=== PATIENT | male | born 1960 | race Caucasian/White ===

== ENCOUNTER 2018-01-10 06:16 | Emergency (ER) | payer OTHER ==
[~2018-01-10] VITALS: Ht 182.9 cm; Wt 77.1 kg
[2018-01-10] MEDS ORDERED: IBUPROFEN 800800 M1 PO (07:01)
[2018-01-10] MEDS ORDERED: PREDNISONE50 MG PO (07:01)
[2018-01-10] MEDS ORDERED: NORCO 5-325 TA1 EACH PO (07:01)
[2018-01-10] MEDS ORDERED: FLEXERIL PO (07:01)
[2018-01-10 07:13] LABS: URINE BILIRUBIN NEGATIVE (Negative); URINE BLOOD 1+ (Negative); URINE CLARITY CLEAR; URINE COLOR STRAW; URINE GLUCOSE-RANDOM NEGATIVE (Negative); URINE KETONES NEGATIVE (Negative); URINE LEUKOCYTES-REFLEX NEGATIVE (Negative); URINE NITRITE-REFLEX NEGATIVE (Negative); URINE PROTEIN NEGATIVE (Negative); URINE SPECIFIC GRAVITY 1.015 (1.005-1.030); URINE UROBILINOGEN 0.2 E.U./dl (0.2-1.0)
[2018-01-10 07:25] LABS: BACTERIA-REFLEX None Seen /HPF (None Seen); CASTS None Seen /LPF (None Seen); CRYSTALS None Seen /LPF (None Seen); MUCUS None Seen strn/LPF (None Seen); SQUAMOUS 0-3 Few /LPF (0-3); URINE RBC 3-10 Few /HPF (0-2); URINE WBC-REFLEX None Seen /HPF (0-5)
[2018-01-10 07:54] VITALS: BP 161/99
[2018-03-19] MEDS ORDERED: NORCO 5-325 TA1 EACH PO (08:35)
[2018-03-19] MEDS ORDERED: IBUPROFEN 800800 M1 PO (08:35)
[2018-03-19] MEDS ORDERED: GABAPENTIN 100100 MG PO (16:14)
[2018-04-02] MEDS ORDERED: NORCO 5-325 TA1 EACH PO (08:22)
[2018-04-02] MEDS ORDERED: IBUPROFEN 800800 M1 PO (08:22)
== END 2018-01-10 07:58 | disposition home or self-care (01) ==
LOC: M.ERS 06:16
PROVIDERS: Personal Emergency Response Attendant
DX: M54.31 Sciatica, right side (principal); F17.210 Nicotine dependence, cigarettes, uncomplicated

== ENCOUNTER → 2018-02-18 | Outpatient (CLI) | payer OTHER ==
[~2018-02-18] MED LIST: ASPIRIN EC81 M1 PO; ATORVASTATIN CA40 MG PO; BRILINTA90 MG PO; CARVEDILOL3.125 MG PO; FLEXERIL PO; GABAPENTIN 100100 MG PO; IBUPROFEN 800800 M1 PO; LISINOPRIL5 MG PO; NORCO 5-325 TA1 EACH PO; PREDNISONE50 MG PO
== END ==
LOC: M.RAD 08:35
DX: M51.36 Other intervertebral disc degeneration, lumbar region (principal); M16.11 Unilateral primary osteoarthritis, right hip; M48.061 Spinal stenosis, lumbar region without neurogenic claudication; I10 Essential (primary) hypertension; Z87.891 Personal history of nicotine dependence

== ENCOUNTER → 2018-03-19 | Outpatient (CLI) | payer OTHER ==
--- NOTE | 2018-04-22 10:00 | PAINCON ---
[address] [address] PAIN MANAGEMENT CONSULTATION Name: MILA SHETTY Room: ZITA BaezAzul#: [id number] Admission: 03/19/18 Attend Phys: Tiffanie Cerna MD Discharge: Date of : 62 Report #: [id number] THIS REPORT FOR: //name// CC: Brigido Cerna DATE OF SERVICE: 03/25/2018 CHIEF COMPLAINT: Low back and right leg pain. HISTORY OF PRESENT ILLNESS: The patient is a 57-year-old gentleman who has been referred to the pain clinic. The patient states he injured his back. He is experiencing pain in the lower portion of his back from his waist lying down his hip into his leg involving his foot. Pain is made worse when he is standing. It is problematic after walking for a short period of time. Notes the pain is improved with use of hot bath for about 10 minutes. Described as constant, shooting and pounding. States that he was carrying a tool chest on 01/09/2018. He slipped and strained his back. Since that time, he has been experiencing constant pain radiating down into his low back involving the right hip and down into the right leg. He has been using gabapentin as well as Naprosyn. Notes that activities such as walking, standing, bending, going from a sitting to a standing position as well as climbing stairs are problematic. He avoids lifting and bending at this juncture. ALLERGIES: No known drug allergies. PAST MEDICAL HISTORY: Back injury, hypertension. PAST SURGICAL HISTORY: None. 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 REVIEW OF SYSTEMS: Indicates generally good health, wears glasses, frequent urination, back pain, difficulty walking, depression. LABORATORY DATA: MRI of the lumbar spine dated 02/26/2018: 1. L2-L3: Posterior disk height loss, moderate left eccentric disk bulge, mild ligamentum flavum buckling and facet osteophytes. Moderate left greater than right neural foraminal stenosis. Mild narrowing of the lateral recesses. Moderate spinal canal stenosis, dural sac diameter 10 mm relative to the normal diameter of 14 at the L2 pedicle level. L3-L4 posterior disk height loss, mild disk bulge with superimposed left lateral large broad-based disk protrusion. Facet osteophytes. Severe left neural foraminal stenosis with effacement of perineural fat and probable impingement of the left L3 nerve from the protrusion. Moderate right neural foraminal stenosis[place] [address] PAIN MANAGEMENT CONSULTATION Name: MILA SHETTY Room: [facility] GordonKayy#: [id number] Admission: 03/19/18 Attend Phys: Tiffanie Cerna MD Discharge: Date of : 62 Report #: [id number]. Dural sac diameter is 12 mm relative to the normal diameter of 13 at the L3 level. 2. L4-L5: Moderate disk bulge, right lateral broad-based disk protrusion, ligamentum flavum buckling and facet osteophytes. Severe right neural foraminal stenosis with complete obliteration of the perineural fat and impingement of the right L4 nerve. Moderate severe left neural foraminal stenosis. Moderate lateral recess stenosis by disk bulge, which partially effaces the dural sac about the descending right L5 nerve roots. Zdxurdai-[id number]-[id number] spinal canal stenosis. Dural sac diameter is 7 mm relative to the normal diameter of 13 at the L4 pedicle. 3. L5-S1: Disk height loss, moderate disk bulge, lateral endplate osteophytes and facet osteophytes. Mild/moderate neural foraminal stenosis. No spinal canal stenosis. Dural sac diameter 12 mm, similar to the diameter at the L5 pedicle level. PAIN CLINIC ASSESSMENT: 1. The patient is not being treated for osteoarthritis or rheumatoid arthritis. 2. Height 6 feet 1 inch, weight 180 pounds, BMI is 24. 3. Vital signs: Blood pressure 172/106, heart rate 100, respiratory rate 16, room air saturation 95, temperature 99.3. Pain score 3/10. 4. Fall history: The patient did slip while carrying a tool chest on 01/09/2018. 5. Blood thinner. The patient is not on a blood thinning medication. 6. Hypertension. The patient is not being treated for hypertension. 7. Opioids greater than 6 weeks: The patient has not been received medication greater than 6 weeks. 8. Risk assessment tool. 9. Functional assessment tool. 10. Recreational drug use. The patient denies use of recreational drugs. 11. Tobacco: The patient smoked 1 pack of cigarettes per day for about the last 45 years. 12. Alcohol: The patient occasionally drinks alcoholic beverages on the weekend. PHYSICAL EXAMINATION: GENERAL: The patient is a well-developed, well-nourished white male. Appears his stated age. He is alert and oriented x 3. His affect is appropriate. HEENT: Normocephalic, atraumatic. Extraocular eye muscles intact. Sclerae nonicteric. Mucous membranes are moist. NECK: Without adenopathy or JVD. HEART: Regular rate. ABDOMEN: Nontender. LUNGS: Clear to auscultation without rhonchi. MUSCULOSKELETAL: Upper extremity muscle strength is judged to be 5/5. The patient without significant scoliosis, kyphosis or lordosis. He has pain and discomfort in the lower portion of his back with [place] [address] PAIN MANAGEMENT CONSULTATION Name: MILA SHETTY Room: [facility] SashaRosa.#: [id number] Admission: 03/19/18 Attend Phys: Tiffanie Cerna MD Discharge: Date of : 62 Report #: [id number] posterior L5-S1 distribution on the right. He has 5- muscle strength. Positive straight leg raise. IMPRESSION: Right lumbar radiculopathy in the L5-S1 distribution after a fall and stress on his back. RECOMMENDATIONS: We discussed treatment options with the patient. Risks and benefits of an epidural steroid injection were discussed. Possible complications of the procedure were reviewed. At this juncture, we would recommend that the patient consider an epidural steroid injection. He will follow up in the future. At that time, we would then consider an epidural steroid injection. Possible complications of the procedure were discussed with the patient. At this juncture, he feels that the pain is problematic enough that he would like to consider it. We will petition his insurance company. The patient did try Medrol Dosepak and has been using Neurontin, but continues to have pain in spite of that treatment course. We would like to thank you for letting us participate in his care. He will follow up in the future, at which time we will consider an epidural steroid injection. <ELECTRONICALLY SIGNED> By: Tiffanie Cerna MD 04/22/18 1000 2237 0340N. Caleb Cerna MD /nt
== END ==
LOC: M.PC 04:49
DX: M54.16 Radiculopathy, lumbar region (principal)

== ENCOUNTER 2018-04-02 10:50 | Inpatient (IN) | payer OTHER ==
[~2018-04-02] VITALS: Ht 185.4 cm; Wt 82.1 kg
[2018-04-02] VITALS (10 sets, daily range): BP systolic 109–157; BP diastolic 70–103
[~2018-04-02 10:50] MED LIST changes: -ASPIRIN EC81 M1 PO; -ATORVASTATIN CA40 MG PO; -BRILINTA90 MG PO; -CARVEDILOL3.125 MG PO; -LISINOPRIL5 MG PO
[2018-04-02 11:11] LABS: ABSOLUTE BASOPHILS 0.1 thou/uL (0.0-0.2); ABSOLUTE EOSINOPHILS 0.1 thou/uL (0.0-0.7); ABSOLUTE LYMPHOCYTES 3.7 thou/uL (0.8-5.3); ABSOLUTE MONOCYTES 0.9 thou/uL (0.0-1.2); ABSOLUTE NEUTROPHILS 5.1 thou/uL (1.6-8.1); BASOPHILS 0.9 %; EOSINOPHILS 1.2 %; HEMATOCRIT 45.3 % (42.0-52.0); HEMOGLOBIN 15.7 gm/dL (14.0-18.0); LYMPHOCYTES 37.6 %; MCHC 34.6 g/dL (28.0-37.0); MCV 95.3 fL (80.0-100.0); MONOCYTES 9.1 %; MPV 7.2 fl. (7.2-11.1); NUCLEATED RBCS 0 /100WBC; PLATELET COUNT* 296 thou/uL (150-400); POLYS 51.2 %; RBC 4.75 mil/uL (4.50-6.00); RDW-CV 13.3 % (10.5-14.5); WBC 9.9 thou/uL (4.0-11.0)
[2018-04-02 11:25] LABS: APTT 28.8 Seconds (25.0-31.3)
[2018-04-02 11:30] LABS: CALCIUM 8.4 mg/dL (8.5-10.1); CREATININE 0.8 mg/dL (0.6-1.3); POTASSIUM 4.1 mmol/L (3.5-5.1)
[2018-04-02 11:48] LABS: ALBUMIN 3.4 g/dL (3.4-5.0); CK-MB MASS 2.3 ng/mL (<0.5-3.6); MAGNESIUM 1.9 mg/dL (1.8-2.4); TOTAL BILIRUBIN 0.4 mg/dL (<0.1-1.0); TOTAL PROTEIN 7.4 g/dL (6.4-8.2); TROPONIN-I LEVEL 0.18 ng/mL (<0.06)
--- NOTE | 2018-04-02 17:30 | EKG ---
[place] [address] ELECTROCARDIOGRAM REPORT Name: [place] Room: [address] ADM IN .R.#: [id number] Admission: 04/02/18 Attend Phys: Yrn Bourgeois MD Discharge: Date of : 62 Report #: [id number] THIS REPORT FOR: //name// [facility] ED Test Date: 2018-04-02 Test Time: 10:56:25 Pat Name: MILA SHETTY Department: Room: [facility] Gender: M Editorial Assistant: : 1960 Requested By: Kyle Bryant Order Number: [id number] MD: Lei Cortez Measurements Intervals [place] Rate: 98 P: 52 [place]: 157 QRS: 79 QRSD: 103 T: 2 QT: 354 QTc: 453 Interpretive Statements Sinus rhythm Extensive anterior infarct, possibly acute No previous ECG available for comparison Electronically Signed On 04-02-2018 17:29:49 CDT by Lei Cortez [email or web address] <ELECTRONICALLY SIGNED> By: Lei Cortez MD, [facility] 04/02/18 1729 D: 09/1055 55 Lei Cortez MD, FACC /EPI
--- NOTE | 2018-04-02 17:32 | EKG ---
[place] [address] ELECTROCARDIOGRAM REPORT Name: DIOGENESMILA ARIAS Room: [address] ADM IN M.R.#: [id number] Admission: 04/02/18 Attend Phys: Yrn Bourgeois MD Discharge: Date of : 62 Report #: [id number] THIS REPORT FOR: //name// [facility] Test Date: 2018-04-02 Test Time: 14:23:50 Pat Name: MILA SHETTY Department: Room: [address] Gender: M Traffic Safety Administrator: : 1960 Requested By: Lei Cortez Order Number: [id number] Rubi MD: Lei Cortez Measurements Intervals [place] Rate: 88 P: 63 [place]: 161 QRS: 90 QRSD: 121 T: 53 QT: 379 QTc: 459 Interpretive Statements Sinus rhythm Nonspecific intraventricular conduction delay septal infarct, old Electronically Signed On 04-02-2018 17:32:22 CDT by Lei Cortez [email or web address] <ELECTRONICALLY SIGNED> By: Lei Cortez MD, [facility] 04/02/18 1732 1423 1423 Lei Cortez MD, FACC /EPI
[2018-04-03] VITALS (16 sets, daily range): BP systolic 101–130; BP diastolic 60–87
[2018-04-03 02:24] LABS: HEMATOCRIT 41.7 % (42.0-52.0); HEMOGLOBIN 14.3 gm/dL (14.0-18.0); MCH 32.6 pg (26.0-34.0); MCHC 34.3 g/dL (28.0-37.0); MCV 94.9 fL (80.0-100.0); MPV 7.6 fl. (7.2-11.1); RBC 4.39 mil/uL (4.50-6.00); RDW-CV 13.5 % (10.5-14.5); WBC 9.6 thou/uL (4.0-11.0)
[2018-04-03 02:44] LABS: ANION GAP 6 mmol/L (7-16); BUN 12 mg/dL (7-18); CALCIUM 7.7 mg/dL (8.5-10.1); CHLORIDE 101 mmol/L (98-107); CHOLESTEROL 171 mg/dL (<200); CO2 24 mmol/L (21-32); CREATININE 0.7 mg/dL (0.6-1.3); GLUCOSE 98 mg/dL (70-99); HDL CHOLESTEROL 30 mg/dL (>40); LDL CHOLESTEROL 122 mg/dL (<100); MAGNESIUM 2.1 mg/dL (1.8-2.4); POTASSIUM 3.9 mmol/L (3.5-5.1); SODIUM 131 mmol/L (136-145); TC:HDL 5.7 Ratio (Not establshd); TRIGLYCERIDE 97 mg/dL (<150); VLDL 19 mg/dL (<40)
[2018-04-03 02:45] LABS: SERUM ASSESSMENT Clear; TROPONIN-I LEVEL 10.63 ng/mL (<0.06)
[2018-04-03] MEDS ORDERED: LISINOPRIL5 MG PO (07:20)
[2018-04-03] MEDS ORDERED: BRILINTA90 MG PO (07:20)
[2018-04-03] MEDS ORDERED: ATORVASTATIN CA40 MG PO (07:20)
[2018-04-03] MEDS ORDERED: ASPIRIN EC81 M1 PO (07:20)
[2018-04-03] MEDS ORDERED: CARVEDILOL3.125 MG PO (07:20)
--- NOTE | 2018-04-03 08:48 | CON ---
[address] [address] CONSULTATION Name: MILA SHETTY BAKARIGILBERTO Room: [address] IN M.R.#: [id number] Admission: 04/02/18 Attend Phys: Yrn Bourgeois MD Discharge: Date of : 62 Report #: [id number] THIS REPORT FOR: //name// CC: Lei Ga MD INDICATION: Anterior wall ST elevation myocardial infarction. HISTORY OF PRESENT ILLNESS: The patient is a 57-year-old gentleman who was being seen in the pain clinic when he complained of recurrent chest pain. He had midsternal chest discomfort, associated with diaphoresis. The pain radiated to both arms bilaterally. EKG shows ST elevation in the anterior leads, consistent with acute anterior wall ST elevation myocardial infarction. The patient did have an episode of ventricular fibrillation in the Emergency Room, requiring a single biphasic shock, back to normal sinus rhythm. The patient has been placed on amiodarone drip. The patient has no prior cardiac history. Risk factors include hypertension and tobacco use. PAST MEDICAL HISTORY: 1. Hypertension. 2. Tobacco use. 3. Chronic low back pain. PAST SURGICAL HISTORY: None. 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 He smokes a pack of cigarettes daily. Denies alcohol use. HOME MEDICATIONS: Hydrocodone/acetaminophen p.r.n., ibuprofen p.r.n., prednisone 5 mg daily. Gabapentin 100 mg at bedtime. ALLERGIES: None documented. FAMILY HISTORY: Noncontributory. PHYSICAL EXAMINATION: VITAL SIGNS: Blood pressure 118/62, pulse 72 and regular. GENERAL: This is a gentleman who is in no distress. HEENT: Head is normocephalic, atraumatic. Extraocular muscles intact. Mucous membranes moist. NECK: Shows no jugular venous distention or bruit. CHEST: Clear anteriorly. CARDIAC: Regular rhythm without gallop or murmur. ABDOMEN: Soft, nontender. EXTREMITIES: Without clubbing, cyanosis or edema. The [place] [address] CONSULTATION Name: MILA SHETTY Room: [address] IN [facility]#: [id number] Admission: 04/02/18 Attend Phys: Yrn Bourgeois MD Discharge: Date of : 62 Report #: [id number] LABORATORY DATA: Pending. IMPRESSION AND RECOMMENDATIONS: 1. Acute anterior wall ST elevation myocardial infarction. Plan for coronary intervention and catheterization. 2. Hypertension. We will adjust medications while in hospital. 3. Probable hyperlipidemia. Recommend atorvastatin nightly. 4. Chronic tobacco use, smoking cessation advised. <ELECTRONICALLY SIGNED> By: Ross De Leon MD, [facility] 04/03/18 0848 1110 1138[facility] Hospitalnai De Leon MD, FACC /nt
--- NOTE | 2018-04-03 10:08 | EKG ---
[place] [address] ELECTROCARDIOGRAM REPORT Name: DIOGENESMILA ARIAS Room: [address] ADM IN M.R.#: [id number] Admission: 04/02/18 Attend Phys: Yrn Bourgeois MD Discharge: Date of : 62 Report #: [id number] THIS REPORT FOR: //name// [facility] Test Date: 2018-04-03 Test Time: 08:17:53 Pat Name: MILA SHETTY Department: Room: [address] Gender: M Yield Loss Inspector: : 1960 Requested By: Lei Cortez Order Number: [id number] Rubi MD: Lei Cortez Measurements Intervals [place] Rate: 79 P: 56 [place]: 162 QRS: 83 QRSD: 116 T: 128 QT: 510 QTc: 585 Interpretive Statements Sinus rhythm Nonspecific intraventricular conduction delay Abnrm T, probable ischemia, anterolateral lds Compared to ECG 04/02/2018 14:23:50 Possible ischemia now present Electronically Signed On 04-03-2018 10:08:22 CDT by Lei Cortez [email or web address] <ELECTRONICALLY SIGNED> By: Lei Cortez MD, [facility] 04/03/18 1008 6 08 Lei Coretz MD, [facility] /EPI
--- NOTE | 2018-04-03 12:59 | 2DMMODE ---
[place] [address] 2 D/M-MODE ECHOCARDIOGRAM Name: MILA SHETTY EMPIRE Room: [address] IN .R.#: [id number] Admission: 04/02/18 Attend Phys: Yrn Bourgeois, Discharge: Date of : 62 Date of Service: 04/03/18 1259 Report #: [id number] THIS REPORT FOR: //name// APPROVED REPORT Study performed: 04/03/2018 09:50:20 EXAM: Comprehensive 2D, Doppler, and color-flow Echocardiogram Patient Location: Bedside BSA: 2.04 HR: 74 bpm BP: 120/71 mmHg Other Information Study Quality: Excellent Indications Non STEMI 2D Dimensions IVSd: 12.88 (7-11mm) LVOT Diam: 18.69 (18-24mm) LVDd: 43.39 mm PWd: 13.65 (7-11mm) Ascending Ao: 32.84 (22-36mm) LVDs: 34.20 (25-40mm) Aortic Root: 34.23 mm Volumes Left Atrial Volume (Systole) LA ESV Index: 11.30 mL/m2 Aortic Valve AoV Peak Parth.: 1.92 m/s AO Peak Gr.: 14.69 mmHg LVOT Max P.38 mmHg AO Mean Gr.: 8.42 mmHg LVOT Mean P.09 mmHg LVOT Max V: 1.45 m/s AO V2 VTI: 28.09 cm LVOT Mean V: 0.93 m/s LATRICE (VTI): 2.51 cm2 LVOT V1 VTI: 25.73 cm AI [place]: 2.30 m/s2 AI PHT: 566.14 ms Mitral Valve E/A Ratio: 0.62 MV Decel. Time: 219.63 ms MV E Max Parth.: 0.38 m/[place] [address] 2 D/M-MODE ECHOCARDIOGRAM Name: MILA SHETTY EMPIRE Room: [address] IN .R.#: [id number] Admission: 04/02/18 Attend Phys: Yrn Bourgeois, Discharge: Date of : 62 Date of Service: 04/03/18 1259 Report #: [id number] MV PHT: 63.69 ms MVA (PHT): 3.45 cm2 TDI E/Lateral E': 3.17 E/Medial E': 5.43 Medial E' Parth.: 0.07 m/s Lateral E' Parth.: 0.12 m/s Pulmonary Valve PV Peak Parth.: 0.96 m/s PV Peak Gr.: 3.66 mmHg Left Ventricle The left ventricle is normal size. mild hypokinesis noted of the distal anteroseptal wall and apex Mild concentric left ventricular hypertrophy. Left ventricular systolic function is borderline. LVEF is 45-50%. Grade I - abnormal relaxation pattern. Right Ventricle The right ventricle is normal size. The right ventricular systolic function is normal. Atria The left atrium size is normal. The right atrium size is normal. Aortic Valve The Aortic valve is sclerotic. Mild aortic regurgitation. No hemodynamically significant valvular aortic stenosis. Mitral Valve The mitral valve is normal in structure. There is no mitral valve regurgitation noted. No evidence of mitral valve stenosis. Tricuspid Valve The tricuspid valve is normal in structure. Trace tricuspid regurgitation. Pulmonic Valve The pulmonary valve is normal in structure. There is no pulmonic valvular regurgitation. Great Vessels The aortic root is normal in size. IVC is normal in size and collapses >50% with inspiration[place] [address] 2 D/M-MODE ECHOCARDIOGRAM Name: DIOGENESZARAGOZA JUANA Room: [address] IN [facility]#: [id number] Admission: 04/02/18 Attend Phys: Yrn Bourgeois, Discharge: Date of : 62 Date of Service: 04/03/18 1259 Report #: [id number] There is no pericardial effusion. <Conclusion> LVEF is 45-50%. mild hypokinesis noted of the distal anteroseptal wall and apex Mild aortic regurgitation. Mild concentric left ventricular hypertrophy. <ELECTRONICALLY SIGNED> By: Lei Cortez MD, FACC 04/03/18 1259 1259 1259 Lei Cortez MD, FACC /INF
--- NOTE | 2018-04-03 18:49 | CARD ---
[address] [address] CARDIAC CATH REPORT Name: [place] Room: [address] IN ..#: [id number] Admission: 04/02/18 Attend Phys: Yrn Bourgeois MD Discharge: Date of : 62 Report #: [id number] THIS REPORT FOR: //name// APPROVED REPORT Study performed: 04/02/2018 10:56:41 Patient Details Patient Status: ED Room #: The patient is a 57 year-old male Event Personnel Ross De Leon Product Safety Compliance Leader, Silvia Rodriguez RN Log Carrier Operator, Amira Feng RTR Monitor, Garland Lane (R) Dana Amador David Product Safety Compliance Leader Procedures Performed Art Access - R femoral artery* Left Heart Cath w/or w/o Coronaries [id number] [facility] Place w/wo Plasty Single LAD [id number] Hemostasis w/ Angioseal Indication Abnormal ECG, STEMI , Chest pain Risk Factors Tobacco History () Admission/Lab Medications/Medications given during procedure Aspirin, Glycoprotein IllbIlla Inhibitors, Heparin Unfract., Heparin IV 6000 units Procedure Narrative The patient was brought emergently to the Cardiac Catheterization Laboratory and was prepped and draped in a sterile manner. The right femoral was infiltrated with 2% Lidocaine subcutaneous anesthesia. A 6fr Ultimum Sheath sheath was inserted into the right femoral artery. Coronary angiography was performed using coronary diagnostic catheters. The right coronary system was accessed and visualized with a Diagnostic 6Fr JR4 catheter. The left coronary system was accessed and visualized with a Diagnostic 6Fr JL4 catheter. The left ventricle was accessed and visualized with a Diagnostic 6Fr angled pigtail catheter. Left ventricular/Aortic Valve gradient assessed via catheter pullback. Left ventriculogram was performed in BARRON projection. Closure device was deployed with a 6 Fr Angioseal. The patient tolerated the procedure well [place] [address] CARDIAC CATH REPORT Name: MILA SHETTY MOBILE Room: [address]#: [id number] Admission: 04/02/18 Attend Phys: Yrn Bourgeois MD Discharge: Date of : 62 Report #: [id number] associated with the procedure. There was no hematoma. Intraoperative Conscious Sedation There was no sedation given. Fluoro Time: 5.6 minutes Dose: DAP 09128 cGycm2 1542 mGy Contrast Type and Amount: Omnipaque 30 ml Coronary Angiography The patient's coronary anatomy is right dominant. Diagnostic Cath Left Main Normal LAD Normal proximally and totally occluded in the midportion. Distal LAD not visualized. Diagonal 1 60% plaque proximally. Circumflex Small in caliber and normal. OM1 Large branched and normal. Right Coronary The vessel appears normal proximally with a tubular 50% narrowing in the mid to distal portion. R PDA Normal. RPLV Normal. Left Ventriculography The left ventricular ejection fraction is estimated to be 30-35%. Left ventricular wall motion abnormalities are present. There is no mitral insufficiency. akinesis noted of the mid and distal anterior wall and apex Hemodynamics The aortic pressure is 158/90 mmHg with a mean of 116 mmHg. The left ventricular pressure is 170/25 mmHg with a mean of mmHg. The left ventricular end diastolic pressure is 27 mmHg. There was no gradient across the aortic valve upon pullback. Pullback from the left ventricle to the aorta revealed no gradient across the aortic valve. PCI Technique Lesion Anticoagulation was achieved with Heparin. bolus of IV aggrastat given Percutaneous coronary intervention was performed on the mid left anterior descending artery segment. The lesion stenosis prior to intervention was 100% with AURA 0 flow. A 6F XB LAD 3.5 Guide Catheter was used to engage the lm ostium. A BMW 190cm Interventional Guidewire was [place] [address] CARDIAC CATH REPORT Name: MILA SHETTY MOBILE Room: [address] IN [facility]#: [id number] Admission: 04/02/18 Attend Phys: Yrn Bourgeois MD Discharge: Date of : 62 Report #: [id number] BALLOON DILATION A Balloon catheter Trek RX 2.5 X 8 was inserted and inflated up to 16.00atm for 12seconds. Repeat angiography revealed the following post-dilatation results: 99% stenosis. Additional Inflation: 16:00atm for 7seconds. patient had a short run of ventricular tachycardia following balloon inflation and the patient was given 150 mg of IV amiodarone STENT DEPLOYMENT A drug-eluting stent Xience Alpine RX 3.5X23 was inserted and inflated up to 10.00atm for 15seconds. Repeat angiography revealed the following post-stent deployment results: 0% stenosis. Additional Inflation: 12.00atm for 16seconds. Final angiography reveals 0 % stenosis with AURA 3 flow. Conclusion 1. acute occlusion of the mid lad 2. successful placement of a single drug eluting stent in the mid lad 3. moderate LV dysfunction with an EF of 30-35% Recommendations Cardiac Rehabilitation Referral Aggressive Medical Therapy Medications Administered Ticagrelor Diagnostic Cath Approved by: Ross De Leon MD Date/Time: <ELECTRONICALLY SIGNED> By: Lei Cortez MD, [facility] 04/03/181848 48 48Dabreanna Cortez MD, FAC /INF
[2018-04-04 02:07] LABS: GLYCOHEMOGLOBIN (HGB A1C) 5.5 % (4.8-5.6)
[2018-04-04 04:00] VITALS: BP 118/75
[2018-04-04 10:30] VITALS: BP 113/68
[2018-04-04 12:01] VITALS: BP 126/77
== END 2018-04-04 14:45 | disposition home or self-care (01) | DRG 246 ==
LOC: M.CL 10:50 → M.ERS 10:50 → M.TBA-CV 11:08 → M.ICU 11:08 → M.2W 04-03 16:22
PROVIDERS: Family Medicine; Internal Medicine Cardiovascular Disease; ADMIT Internal Medicine
PROC: 027034Z Dilation of Coronary Artery, One Artery with Drug-eluting Intraluminal Device, Percutaneous Approach (ICD-10-PCS; principal; 2018-04-02)
PROC: 4A023N7 Measurement of Cardiac Sampling and Pressure, Left Heart, Percutaneous Approach (ICD-10-PCS; principal; 2018-04-02)
PROC: B2111ZZ Fluoroscopy of Multiple Coronary Arteries using Low Osmolar Contrast (ICD-10-PCS; principal; 2018-04-02)
PROC: B2151ZZ Fluoroscopy of Left Heart using Low Osmolar Contrast (ICD-10-PCS; principal; 2018-04-02)
DX: I21.09 ST elevation (STEMI) myocardial infarction involving other coronary artery of anterior wall (principal); I49.01 Ventricular fibrillation; I50.41 Acute combined systolic (congestive) and diastolic (congestive) heart failure; F11.20 Opioid dependence, uncomplicated; G89.29 Other chronic pain; I11.0 Hypertensive heart disease with heart failure; M54.5 Low back pain; F17.210 Nicotine dependence, cigarettes, uncomplicated; I25.10 Atherosclerotic heart disease of native coronary artery without angina pectoris; Z79.82 Long term (current) use of aspirin; Z79.899 Other long term (current) drug therapy; Z87.828 Personal history of other (healed) physical injury and trauma; Z23 Encounter for immunization

== ENCOUNTER → 2018-04-02 | Outpatient (CLI) | payer OTHER ==
--- NOTE | 2018-04-22 10:00 | PAINCON ---
[address] [address] PAIN MANAGEMENT CONSULTATION Name: MILA SHETTY Room: ZITA HoldenKayy#: [id number] Admission: 04/02/18 Attend Phys: Tiffanie Cerna MD Discharge: Date of : 62 Report #: [id number] THIS REPORT FOR: //name// CC: Brigido Cerna DATE OF SERVICE: 04/03/2018 PRIMARY CARE PHYSICIAN: Brigido Ga MD CHIEF COMPLAINT: Chest pain. HISTORY OF PRESENT ILLNESS: The patient is a 57-year-old gentleman who has been seen in the Pain Clinic because of low back pain with radiation down into his right hip. He has returned to the Pain Clinic with the expectation of undergoing an epidural steroid injection. The patient complained this morning of some substernal chest pain. Noticed pain 2 days prior. He did have some pain, which lasted about 10 minutes. It involves his left arm. He returns today indicating that he has noted some pain and discomfort at this juncture. Pain in the low back area was rated as a 2/10. At this juncture, he has noticed an increasing amount of pain. He is feeling somewhat lightheaded. He is diaphoretic. He has not been treated for cardiac pain in the past. ALLERGIES: No known drug allergies. PAIN CLINIC ASSESSMENT: 1. The patient has not been treated for osteoarthritis or rheumatoid arthritis. 2. Height 6 feet 1 inch, weight 178 pounds, BMI is 23.9. 3. Vital signs: Blood pressure 123/84, heart rate 96, respiratory rate 16, room air saturation 95%, temperature 98.7. 4. Pain intensity in the low back area 2/10, chest pain intensity 7/10. He is experiencing some pain is radiating down into his left arm. 5. Fall history: The patient has not fallen in the last week. Did slip and fall on 01/09/2018 while carrying a tool chest. 6. Blood thinner. The patient is not on a blood thinning medication. 7. Hypertension. The patient is not being treated for hypertension. 8. Opioids greater than a week, then 6 weeks. The patient is not receiving opioid medication on a regular basis. 9. Risk assessment tool, low for use of opioid medication. 10. Functional assessment tool. 11. Recreational drug use. The patient denies use of recreational drugs. 12. Tobacco: The patient smokes 1 pack of cigarettes per day and smoked for about the last 45 years. 13. Alcohol: The patient denies more than occasional alcoholic beverage [place] [address] PAIN MANAGEMENT CONSULTATION Name: DIOGENESMILA [facility] [id number] Admission: 04/02/18 Attend Phys: Tiffanie Cerna MD Discharge: Date of : 62 Report #: [id number] PHYSICAL EXAMINATION: GENERAL: The patient is a well-developed, well-nourished white male. Appears his stated age. He is somewhat ____ today. He does have somewhat of a look of impending doom on his face. He is diaphoretic. He is complaining of pain and discomfort in the left arm with radiation in the left arm and pain in this area of his heart. HEENT: Normocephalic, atraumatic. Extraocular eye muscles intact. Sclerae nonicteric. Mucous membranes are moist. NECK: Without adenopathy or JVD. HEART: The patient does complain of chest pain and discomfort. ABDOMEN: Nontender. MUSCULOSKELETAL: Upper extremities muscle strength 5/5. NEUROLOGIC: The patient without scoliosis, kyphosis or lordosis. Has pain and discomfort in the lower portion of his back with pain that radiates down into the L5-S1 distribution. IMPRESSION: New onset of chest pain first one ____ about 10 minutes with left arm pain and discomfort on Sunday. Today is Sunday. He has noted an increase in pain and discomfort at this juncture. He is feeling short of breath and experiencing more pain and discomfort. DESCRIPTION OF PROCEDURE: The patient was taken to the examination room. He was placed on the bed. A blood pressure monitor was placed. Saturation monitor was placed. The patient was placed on oxygen 100% nonrebreather was placed. Started to note some improvement in his pain. central sterile technician were called. The patient was evaluated. He was then transported to the Emergency Room at [facility]. He will then be treated by the emergency team and cardiac staff. We would like to thank you for letting us participate in his care. We hope he continues to improve. <ELECTRONICALLY SIGNED> By: Tiffanie Cerna MD 04/22/18 1000 [id number] [id number]. Caleb Cerna MD /JAZIEL
== END ==
LOC: M.PC 04:54
DX: I21.3 ST elevation (STEMI) myocardial infarction of unspecified site (principal); F17.210 Nicotine dependence, cigarettes, uncomplicated; Z72.89 Other problems related to lifestyle

== ENCOUNTER → 2019-01-06 | Outpatient (CLI) | payer OTHER ==
[~2019-01-06] MED LIST changes: +ASPIRIN EC81 M1 PO; +ATORVASTATIN CA40 MG PO; +BRILINTA90 MG PO; +CARVEDILOL3.125 MG PO; +LISINOPRIL5 MG PO
--- NOTE | 2019-01-06 15:35 | 2DMMODE ---
[place] [address] 2 D/M-MODE ECHOCARDIOGRAM Name: MILA SHETTY BAKARIGILBERTO Room: [facility]#: [id number] Admission: 01/06/19 Attend Phys: Ross De Leon, Discharge: Date of : 62 Date of Service: 01/06/19 1534 Report #: [id number] THIS REPORT FOR: //name// APPROVED REPORT Study performed: 01/06/2019 09:01:14 EXAM: Comprehensive 2D, Doppler, and color-flow Echocardiogram Patient Location: Out-Patient BSA: 2.01 HR: 74 bpm BP: 120/70 mmHg Other Information Study Quality: Good Indications Congestive Heart Failure CAD 2D Dimensions IVSd: 9.91 (7-11mm) LVOT Diam: 20.94 (18-24mm) LVDd: 46.26 mm PWd: 10.54 (7-11mm) Ascending Ao: 30.70 (22-36mm) LVDs: 33.19 (25-40mm) Aortic Root: 31.56 mm Volumes Left Atrial Volume (Systole) LA ESV Index: 17.10 mL/m2 Aortic Valve AoV Peak Parth.: 1.78 m/s AO Peak Gr.: 12.74 mmHg LVOT Max P.56 mmHg AO Mean Gr.: 6.92 mmHg LVOT Mean P.11 mmHg LVOT Max V: 1.07 m/s AO V2 VTI: 32.91 cm LVOT Mean V: 0.66 m/s LATRICE (VTI): 2.21 cm2 LVOT V1 VTI: 21.10 cm AI Pettis: 3.88 m/s2 AI PHT: 369.40 ms Mitral Valve E/A Ratio: 0.90 MV Decel. Time: 178.19 [place] [address] 2 D/M-MODE ECHOCARDIOGRAM Name: MILA SHETTY Room: [facility]#: [id number] Admission: 01/06/19 Attend Phys: Ross De Leon, Discharge: Date of : 62 Date of Service: 01/06/19 1534 Report #: [id number] MV E Max Parth.: 0.58 m/s MV PHT: 51.67 ms MVA (PHT): 4.26 cm2 TDI E/Lateral E': 5.27 E/Medial E': 4.83 Medial E' Parth.: 0.12 m/s Lateral E' Parth.: 0.11 m/s Pulmonary Valve PV Peak Parth.: 0.86 m/s PV Peak Gr.: 2.96 mmHg Left Ventricle The left ventricle is normal size. There is normal LV segmental wall motion. There is normal left ventricular wall thickness. Left ventricular systolic function is normal. The left ventricular ejection fraction is within the normal range. LVEF is 55-60%. Grade I - abnormal relaxation pattern. Right Ventricle The right ventricle is normal size. The right ventricular systolic function is normal. Atria The left atrium size is normal. The right atrium size is normal. Aortic Valve Mild aortic valve sclerosis. Mild to moderate aortic regurgitation. There is no aortic valvular stenosis. Mitral Valve The mitral valve is normal in structure. There is no mitral valve regurgitation noted. No evidence of mitral valve stenosis. Tricuspid Valve The tricuspid valve is normal in structure. There is no tricuspid valve regurgitation noted. Pulmonic Valve The pulmonary valve is normal in structure. There is no pulmonic valvular regurgitation. Great Vessels The aortic root is normal in size. IVC is normal in size and collapses >50% [place] [address] 2 D/M-MODE ECHOCARDIOGRAM Name: MILA SHETTY [id number] Admission: 01/06/19 Attend Phys: Ross De Leon, Discharge: Date of : 62 Date of Service: 01/06/19 1534 Report #: [id number] Pericardium There is no pericardial effusion. <Conclusion> The left ventricle is normal size. There is normal left ventricular wall thickness. Left ventricular systolic function is normal. The left ventricular ejection fraction is within the normal range. LVEF is 55-60%. Grade I - abnormal relaxation pattern. The right ventricle is normal size. The left atrium size is normal. Mild aortic valve sclerosis. Mild to moderate aortic regurgitation. There is no aortic valvular stenosis. The mitral valve is normal in structure. The tricuspid valve is normal in structure. IVC is normal in size and collapses >50% with inspiration. There is no pericardial effusion. There is normal LV segmental wall motion. <ELECTRONICALLY SIGNED> By: Antoine Parada MD, [facility] 01/06/19 1534 1534 1534 Antoine Parada MD, FACC /INF
== END ==
LOC: M.CRD 08:33
DX: I35.1 Nonrheumatic aortic (valve) insufficiency (principal); I25.10 Atherosclerotic heart disease of native coronary artery without angina pectoris; I50.9 Heart failure, unspecified; I25.5 Ischemic cardiomyopathy